=== PATIENT | male | born 1970 | race Caucasian/White ===

== ENCOUNTER → 2021-06-05 | Outpatient (REF) ==
--- NOTE | 2021-06-05 14:37 | REP ---
INDICATION: PAIN COMPARISON: None TECHNIQUE: Five views FINDINGS: The compartments are symmetric and well maintained. There is no fracture or destructive osseous lesion. IMPRESSION: Within normal limits. <Electronically signed by Pedro Naik > 06/05/21 [id number]
--- NOTE | 2021-06-05 14:38 | REP ---
INDICATION: PAIN. COMPARISON: None. TECHNIQUE: Four views each foot FINDINGS: Bilateral: The joint spaces are symmetric and relatively well maintained. There is no evidence of acute fracture or destructive osseous lesion. IMPRESSION: No acute osseous abnormality bilateral. <Electronically signed by Pedro Naik > 06/05/21 [id number]
--- NOTE | 2021-06-05 14:41 | REP ---
INDICATION: PAIN. COMPARISON: None. TECHNIQUE: Three views of the bilateral shoulder were performed. FINDINGS: The acromioclavicular and glenohumeral relationships are within normal limits. There is no acute fracture or destructive osseous lesion. IMPRESSION: No acute osseous abnormality bilateral <Electronically signed by Pedro Naik > 06/05/21 [id number]
--- NOTE | 2021-06-05 14:41 | REP ---
INDICATION: PAIN. COMPARISON: None. TECHNIQUE: Four views bilateral FINDINGS: Bilateral: No acute fracture or destructive osseous lesion. The mortise is intact. IMPRESSION: No acute osseous abnormality bilateral <Electronically signed by Pedro Naik > 06/05/21 [id number]
== END ==
LOC: M PLAIMG 11:01
PROVIDERS: ATTEND Internal Medicine
DX: M79.672 Pain in left foot (principal); M25.571 Pain in right ankle and joints of right foot; M79.671 Pain in right foot

== ENCOUNTER → 2022-08-15 | Outpatient (CLI) | payer OTHER | LOC: M LABSMTC 09:18 | PROVIDERS: ATTEND Anesthesiology | DX: Z01.812 Encounter for preprocedural laboratory examination (principal); Z20.822 Contact with and (suspected) exposure to COVID-19 ==

== ENCOUNTER 2022-08-20 09:45 | Day surgery (SDC) | payer OTHER ==
[~2022-08-20] VITALS: Ht 175.3 cm; Wt 103.4 kg
[~2022-08-20 09:45] MED LIST: NS 1,000 ML IV ONE
[2022-08-20] MEDS ORDERED: propofoL 200 MG/20 ML VIAL As Ordered ONE (09:50)
[2022-08-20] MEDS ORDERED: LIDOCAINE 2% 100MG/5ML SDV (FOR ANES.) As Ordered ONE (09:50)
[2022-08-20 11:46] VITALS: BP 133/88
== END 2022-08-20 11:47 | disposition home or self-care (01) ==
LOC: M OPP 09:45
PROVIDERS: ATTEND Internal Medicine Gastroenterology
DX: Z12.11 Encounter for screening for malignant neoplasm of colon (principal); K64.0 First degree hemorrhoids; F41.9 Anxiety disorder, unspecified; Z87.19 Personal history of other diseases of the digestive system; F17.200 Nicotine dependence, unspecified, uncomplicated